=== PATIENT | male | born 1990 | race Caucasian/White ===

== ENCOUNTER → 2022-06-28 | Outpatient (REF) | payer BC ==
[2022-06-30 20:10] LABS: ENDOMYSIAL ABY IgA Negative (Negative); TISSUE TRANSGLUTAMINASE IgA <2 U/mL (0-3)
== END ==
LOC: M LAB REF 16:11
PROVIDERS: ATTEND Internal Medicine
DX: R19.7 Diarrhea, unspecified (principal)